=== PATIENT | male | born 1985 | race Caucasian/White ===

== ENCOUNTER 2023-06-13 18:54 | Emergency (ER) | payer MEDICAID, SELFPAY ==
[2023-06-13 19:10] VITALS: BP 136/72; BP 140/84; PULSE 82; PULSE 84; RESP 16; TEMP 37.2; O2SAT 92; O2SAT 94; BMI 29.8
[2023-06-13] MEDS: Acetaminophen 325 MG TABLET 650 MG PO (19:29)
--- NOTE | 2023-06-14 01:07 | ED.OVERDOSE ---
HPI - Overdose General Chief Complaint: Overdose Stated Complaint: OVERDOSE CAOX4 Time Seen by Provider: 06/13/23 19:10 Source: patient Mode of arrival: EMS Limitations: no limitations History of Present Illness HPI Narrative: Patient history of substance abuse often this time patient took about 15 mg of Percocet and became unresponsive likely had fentanyl girlfriend gave Narcan 2 mg and patient became conscious after arrival patient alert oriented x3 saturating 92% at room air denies any cough or shortness of breath as Narcan at home does not want to stay in the ER does not want to go to detox Related Data Allergies Allergy/AdvReac Type Severity Reaction Status Date / Time No Known Allergies Allergy Unverified 07/28/20 16:33 [No Known Allergies*] Review of Systems Review of Systems: Yes all other systems are reviewed and are negative COUNT INCLUDES [facility] Social History Social History Alcohol intake: current Smoked in Last 30 Days: Yes Use of substances other than those prescribed or required for medical reasons: Yes Advance Directives: No Advance Directives Information Provided: No Physical Exam Vital Signs: Vital Signs: Last Vital Signs Temp 99.0 F 06/13/23 19:10 Pulse 84 06/13/23 19:10 Resp 16 06/13/23 19:10 BP 140/84 H 06/13/23 19:10 Pulse Ox 92 06/13/23 19:10 O2 Del Method Room Air 06/13/23 19:10 BMI result Body Mass Index 29.8 Appearance: Alert. Oriented X3. No acute distress. Eyes: PERRLA, No Nystagmus ENT: Pharynx normal. Oral Mucosa moist Neck: Normal inspection. Neck supple. CVS: Normal heart rate and rhythm. Pulses normal. Respiratory: No respiratory distress. Equal air entry bilateral, no wheezing/rales/rhonchi Abdomen: Soft and nontender. Bowel sounds are present, no mass palpable, no CVA tenderness Skin: Skin warm and dry. Normal skin color. Normal skin turgor. Extremities: No lower extremity edema. No calf tenderness Neuro: Oriented X 3. No motor deficit. No sensory deficit.No cerebellar signs , cranial nerves II-XII intact Medications Administered Discontinued Medications Generic Name Dose Route Start Last Admin Trade Name Freq PRN Reason Stop Dose Admin Acetaminophen 650 mg 06/13/23 19:19 06/13/23 19:29 Acetaminophen 325 Mg Tablet PO 06/13/23 19:20 650 mg ONCE ONE Administration Medical Decision Making Medical Decision Making MDM Narrative: Patient is saturating 92% on room refusing to go to detox will discharge patient home Discharge Plan Discharge Clinical Impression: Poisoning by opiate or related narcotic Patient Disposition: Home, Self-Care Instructions: Opioid Use Disorder (ED) Additional Instructions: stop using drugs follow-up with detox as needed Interventions: ED Discharge Assessment Last Done: 06/13/23 19:44 Discharge Date/Time: 06/13/23 19:45
== END 2023-06-13 19:45 | disposition home or self-care (01) ==
LOC: HO.ED 19:36
PROVIDERS: Emergency Provider Internal Medicine; PCP Internal Medicine
DX: T40.1X1A Poisoning by heroin, accidental (unintentional), initial encounter (principal); Y92.9 Unspecified place or not applicable; Z71.51 Drug abuse counseling and surveillance of drug abuser
CPT/HCPCS: 99283; 99284